=== PATIENT | female | born 1985 | race African-American/Black ===

== ENCOUNTER 2021-12-05 00:32 | Day surgery (SDC) | payer OTHER, SELFPAY ==
[2021-11-25 15:42] VITALS: BMI 51.6
--- NOTE | 2021-11-25 15:47 | PC.NURSE ---
Report to the Outpatient Waiting Room, entrance under the green pavilion located off [facility], at time 0615 on date 12/05/21. OR Time: 0815. - You and your visitor will be asked a series of questions to screen for COVID 19 for your protection. - A mask is required within the hospital. One visitor will be allowed to accompany the patient into the hospital. Patients visitor will be instructed to remain with patient at all times or leave the building. We will allow the visitor to come back to the postoperative area when patient is ready. Preoperative COVID Testing Requirements: No COVID Test needed if: (proof is required; if not received patient will have Rapid Test prior to entry) - Patient has received COVID Vaccine at least 14 days prior to procedure date or - Patient has positive COVID test result within last 90 days of surgery date. COVID Test needed if above criteria is not met Patients may have clear liquids (water, carbonated beverages, clear teas, apple juice) until 3 hours prior to surgery with a maximum of 20 ounces. - No food from midnight until time of surgery Take the following medications with a SIP of water the morning of surgery: NONE Medications to discontinue per physician: N/A Date to take last dose: N/A Please no make-up, nail sami, hairspray, perfume, deodorant, or body powder the day of surgery. No jewelry (including any body piercings) or valuables the day of surgery, leave them at home. Please take a shower or bath the night before, or the morning of, surgery with an antibacterial soap. Wear comfortable, loose fitting clothing. Children are encouraged to wear pajamas. - Jewelry must be removed prior to entering the operating room. Rings and piercings that are not removed may be cut off. - The hospital will not accept responsibility for valuables. - Please leave all valuables, including medications, at home the day of surgery. If you are going home after surgery, a licensed front load trash truck driver must drive you home. - NO public transportation without another adult. - We recommend that an adult stay with you for 24 hours following discharge. - We also recommend that you do not drive, make important decision, drink alcoholic beverages, or take any drugs that were not prescribed by your health care provider for at least 24 hours after your discharge time. Follow any additional instructions given to you from your surgeon. Telephone instructions given to XI RODRIGUEZ and asked if any additional questions and then verbalized understanding. Patient advised to call surgeon office or pre surgery nurse liaison [phone] if any additional questions.
--- NOTE | ~2021-12-05 | US_ITS ---
EXAMINATION: US guidance surgery DATE: 12/05/2021 08:39 INDICATION: Migrated Nexplanon. TECHNIQUE: Multiple grayscale ultrasound images of the left upper arm were obtained. COMPARISON: None FINDINGS: There is a subcutaneous linear foreign body in the upper arm. IMPRESSION: 1. Subcutaneous linear contraceptive implant in the upper arm localized for surgery. Reviewed, dictated and finalized at location A. OARD MOTOR TESTER IMPRESSION: 1. Subcutaneous linear contraceptive implant in the upper arm localized for alexia walker.
[2021-12-05 06:22] VITALS: BP 170/96; PULSE 63; RESP 16; TEMP 36.1; O2SAT 100
--- NOTE | 2021-12-05 07:04 | WPDANESEPPF ---
Anes - Initial Pre Proc Eval Procedure: Operation Date: 12/05/21 07:30 Proposed Procedures p Nexplanon Removal in Left Arm Guided by Ultrasound - Abbie Dent MD Date/Time: 12/05/21 07:04 Surgeon: Abbie Dent MD Pre Op Diagnosis: migrated nexplanon Patient Data Age: 36 Gender: F Height: 1.68 m Weight: 139 kg Last Vital Signs Temp 36.1 C L 12/05/21 06:22 Pulse 63 12/05/21 06:22 Resp 16 12/05/21 06:22 BP 170/96 H 12/05/21 06:22 Pulse Ox 100 12/05/21 06:22 Allergies Allergy/AdvReac Type Severity Reaction Status Date / Time No Known Allergies Allergy Verified 12/05/21 06:29 Home Medications Medication Instructions Recorded Confirmed Type No Home Medications 11/25/21 12/05/21 History Patient hx anesthesia problems: none Family hx anesthesia problems: none Results Review: All pre-operative results and documents have been reviewed as part of the pre-operative evaluation. [facility] Social History Social History Smoking status: Never smoker Alcohol intake: never Substance use: former Substance use type: marijuana Living arrangements: with family Additional living arrangements comments: CHILDREN Spiritual care concerns: No Anes - Eval Final PreProcedure Day of Procedure 12/05/21 07:04 Patient weight: morbidly obese Heart: regular rate and rhythm Lungs: clear to auscultation Airway: Mallampati scale class II Neurological: alert and oriented Last oral intake: >/= 8 hours ASA classification: III Emergent: no Anesthetic plan: proceed Anesthesia type and monitoring: general GIVS and standard monitoring Results Review: All pre-operative results and documents have been reviewed as part of the pre-operative evaluation. Informed Consent: The patient's anesthetic plan and its attendant risks and benefits were discussed with the patient/family/POA. Questions were solicited and answers provided to the satisfaction of the patient/family/POA.
[2021-12-05] MEDS: LACTATED RINGERS 1,000 ML 30 ML IV CONT (07:11)
--- NOTE | 2021-12-05 07:24 | PM.HPGS ---
History of Present Illness History of Present Illness Consent: Risks, benefits, and alternatives have been discussed and questions answered. Patient agrees to proceed with procedure. Chief complaint: migrated nexplanon Narrative: Allison Fu is a 36 year old female with a Nexplanon placed by previous doctor in her left arm. The device is not palpable and attempt to remove in the office was unsuccessful. Xray shows it is in the left arm in the subcutaneous tissue. Plan to remove in OR with u/s guidance. Risks of infection, bleeding, and injury to surrounding tissues discussed. General surgeon is on standby if needed. Review of Systems Review of Systems: not repeated day of surgery; patient states no changes in status PMFSH Past Medical History Medical History (Updated 12/05/21 @ 07:32 by Abbie Dent MD) (normal spontaneous vaginal delivery) x4 Social History Social History Smoking status: Never smoker Alcohol intake: never Substance use: former Substance use type: marijuana Living arrangements: with family Additional living arrangements comments: CHILDREN Spiritual care concerns: No Meds Home Medications and Allergies Home Medications Medication Instructions Recorded Confirmed Type No Home Medications 11/25/21 12/05/21 History Allergies Allergy/AdvReac Type Severity Reaction Status Date / Time No Known Allergies Allergy Verified 12/05/21 06:29 Vital Signs Vital Signs - 24 hr 12/05/21 06:22 Temperature 96.9 F L Pulse Rate 63 Respiratory Rate 16 Blood Pressure 170/96 H Pulse Oximetry 100 Exam Const: General: comfortable Nutritional Appearance: obese (BMI 52.6) Orientation/consciousness: patient oriented x3 GI: GI Palp: Yes Soft to palpation, No Tenderness to palpation present (GI) and No Palpable mass present : External Female Exam: normal external appearance Speculum Exam - Vagina: normal appearance of the vagina and normal vaginal discharge Speculum Exam - Cervix: normal appearance of the cervix Bimanual exam- vagina & uterus: uterine size normal and consistency normal Bimanual Exam- Adnexa, other: normal adnexae and No adnexal tenderness Neuro: General: patient oriented x3 Extrem: Left upper extremity: normal to inspection (unable to palpate device) Assessment and Plan Assessment and plan (1) Encounter for Nexplanon removal: Code(s): Z30.46 - Encounter for surveillance of implantable subdermal contraceptive Status: Acute Assessment and Plan: plan excision in OR under local and MAC
--- NOTE | 2021-12-05 07:32 | WPDHPUPDATE1 ---
History and Physical Update Update Date/Time: 12/05/21 07:32 History and Physical has been reviewed, including an updated exam of the patient. There are NO changes in the patient's condition. Risks, benefits, and alternatives have been discussed and questions answered. Patient agrees to proceed with procedure.
--- NOTE | 2021-12-05 08:12 | P.OP_ITS ---
Procedure Note - Detailed Date of Procedure 12/05/21 Pre-op Diagnosis migrated nexplanon Post-op Diagnosis same Procedure Performed Removal of Nexplanon device Surgeon Abbie Dent MD Anesthesia MAC and local Findings Per ultrasound findings the device had migrated approximately 3cm from the insertion site. The distal end was more superficial than the proximal portion. Description of Procedure The patient was taken to the operating room and placed under anesthesia in the dorsal supine position. The patient's arm was flexed at the shoulder and elbow and prepped and draped in the usual sterile fashion. Ultrasound was performed prior to prepping and the device was located. The fryer line helper visualized the device. A local block was placed in the skin and subcutaneous tissues around the distal end. A skin incision was made approximately 1cm in length. Using a small hemostat and ultrasound guidance the device was able to be grasped and pulled to skin incision. Excess adhesions were removed with a scalpel and the device is removed intact and discarded. The skin incision was closed using 4-0 Vicryl in a subcuticular fashion. Bandage was placed and the arm was wrapped to prevent bruising. Sponge, needle, and instrument counts are correct per the OR staff. Patient was awakened from anesthesia and taken to recovery in stable condition. Estimated Blood Loss 0 Drains No Packing No Pathology none sent Complications No immediate complications Condition stable Disposition PACU
[2021-12-05 08:20] VITALS: BP 121/104; PULSE 88; RESP 24; TEMP 36.3; O2SAT 99
[2021-12-05 08:35] VITALS: BP 129/66; PULSE 69; RESP 18; O2SAT 96
[2021-12-05 08:45] VITALS: BP 135/68; PULSE 63; RESP 14; O2SAT 100
[2021-12-05 08:50] VITALS: BP 129/84; PULSE 60; RESP 20
[2021-12-05 09:17] VITALS: BP 119/73; PULSE 65; RESP 16
== END 2021-12-05 09:35 | disposition home or self-care (01) ==
PROVIDERS: Visit Provider Obstetrics & Gynecology Gynecology
PROC: (CPT 58605; principal; 2021-12-05 07:30)
DX: Z30.46 Encounter for surveillance of implantable subdermal contraceptive (principal); F12.90 Cannabis use, unspecified, uncomplicated; E66.8 Other obesity; Z68.42 Body mass index [BMI] 45.0-49.9, adult
CPT/HCPCS: 11982; 76998; J2250; J2405; J2704; J3010; J7120